=== PATIENT | female | born 1965 | race Caucasian/White ===

== ENCOUNTER 2024-09-01 13:22 | Emergency (ER) | payer SELFPAY ==
[2024-09-01] VITALS (30 sets, daily range): BP systolic 98–122; BP diastolic 51–69; PULSE 92–113; RESP 13–29; TEMP 36.6–36.8; O2SAT 92–100; BMI 27.9
[2024-09-01 14:24] LABS: Add Manual Diff / Slide Review NO; Basophils Absolute Auto 0 /uL (0-100); Basophils Percent Auto 1.1 % (0-2); Eosinophils Absolute Auto 100 /uL (0-450); Lymphocytes Absolute Auto 1100 /uL (1100-4500); Lymphocytes Percent Auto 26.7 % (25-40); Mean Corpuscular HGB Conc 30.7 % (30-36); Mean Corpuscular Hemoglobin 23.5 PG (26-34); Mean Corpuscular Volume 76.5 fL (80-100); Monocytes Absolute Auto 300 /uL (0-900); Monocytes Percent Auto 8.1 % (3-14); Neutrophils Absolute Auto 2600 /uL (1500-7000); Neutrophils Percent Auto 62.1 % (50-75); Platelet Count 152 X10^3/uL (150-400); Red Blood Cell Count 2.54 X10^6/uL (4.0-5.2); Red Cell Distribution Width 24.3 % (11.6-14.8); White Blood Cell Count 4.2 X10^3/uL (4.5-11.0)
[2024-09-01 14:27] LABS: Hematocrit 19.4 % (36-46)
[2024-09-01 14:30] LABS: Alanine Aminotransferase 14 IU/L (<35); Albumin 3.3 g/dL (3.5-5.0); Albumin Globulin Ratio 0.9 (1.0-2.8); Alkaline Phosphatase 128 U/L (38-126); Aspartate Aminotransferase 37 IU/L (14-36); Bilirubin Total 1.5 mg/dL (0.2-1.3); Blood Urea Nitrogen 13 mg/dL (7-17); Calcium 8.3 mg/dL (8.4-10.2); Carbon Dioxide 24 mmol/L (22-32); Chloride 101 mmol/L (98-107); Estimated Glomerular Filt Rate > 60 mL/min (>60); Globulin 3.5 g/dL (1.7-4.1); Glucose 89 mg/dL (70-99); HEMOLYSIS < 15 (0-50); Lipase 203 U/L (23-300); Potassium 3.4 mmol/L (3.4-5.1); Sodium 135 mmol/L (137-145); Total Protein 6.8 g/dL (6.3-8.2)
--- NOTE | 2024-09-01 14:33 | PC.NURSE ---
pt was asked to provide a stool sample and was agreeable. pt transfered onto bed side commode. unable to produce a sample at this time.
[2024-09-01 14:41] LABS: INR 1.4 (0.9-1.3); Prothrombin Time 15.8 SECONDS (9.4-12.5)
[2024-09-01 14:44] LABS: PTT Partial Thromboplastin Tim 38 SECONDS (25.1-36.5)
[2024-09-01 14:46] LABS: Lactate (Lactic Acid) 1.3 mmol/L (0.7-2.1); Magnesium 1.7 mg/dL (1.6-2.3)
[2024-09-01] MEDS: PANTOPRAZOLE 40 MG VIAL 80 MG IV (14:46)
--- NOTE | 2024-09-01 14:46 | ED_ITS ---
HPI - General Adult <Farzaneh Romero MD - Last Filed: 09/02/24 20:18> General Chief complaint: Abdominal Pain Stated complaint: Lower back pain / both side hurt x 14 days Time Seen by Provider: 09/01/24 14:26 Source: patient Mode of arrival: Ambulatory History of Present Illness HPI narrative: Pt is a 58 y/o F without known pmh presenting with low back and bilateral side pain for the last 2 weeks. Patient denies any acute injury, states pain is better when lying on her side. Has been intermittently taking tylenol or ibuprofen without significant relief. PAtient does endorse abdominal distension without significant abdominal pain which has also worsened over the last two weeks. Has been having liquid stools/diarrhea however denies any bloody or dark, tarry stools. No dysuria however urine has been decreased. Patient with history of alcohol use disorder, however has not had any alcohol since onset of these symptoms two weeks prior. She denies any fevers or chills, no lightheadedness but does have generalized fatigue. Related Data Previous Rx's Medication Instructions Recorded omeprazole 20 mg capsule,delayed 20 mg PO DAILY upper abdominal 09/01/24 release pain 30 days #30 caps Allergies Allergy/AdvReac Type Severity Reaction Status Date / Time erythromycin base Allergy Unknown super Verified 09/01/24 13:26 [From ERYTHROCIN] sick Review of Systems <Farzaneh Romero MD - Last Filed: 09/02/24 20:18> Review of Systems ROS Unobtainable: All systems reviewed & are unremarkable except as noted in HPI and below Constitutional Constitutional: Reports fatigue and Denies fever(s) Eyes Eyes: Denies diplopia ENT Ears, Nose, Mouth, and Throat: Denies dizziness and Denies epistaxis Cardiovascular Cardiovascular: Denies chest pain Gastrointestinal Gastrointestinal: Denies abdominal pain, Denies melena, Reports bloating and Reports change in bowel habits Genitourinary Genitourinary: Denies dysuria Neurologic Neurologic: Denies confusion and Denies dizziness Psychiatric Psychiatric: Denies confusion Endocrine Endocrine: Reports fatigue Patient History <Farzaneh Romero MD - Last Filed: 09/02/24 20:18> Social History Smoking Status: Current some day smoker Smoking Status: Current some day smoker tobacco type: cigarettes Exam <Farzaneh Romero MD - Last Filed: 09/02/24 20:18> Narrative Exam Narrative: Grossly distended abdomen, nontender to palpation Axbzz-dlhqsea-plhe-left lower extremity edema Tachycardia Initial Vital Signs Initial Vital Signs: Vital Signs Temperature 98.1 F 09/01/24 13:26 Pulse Rate 113 H 09/01/24 13:26 Respiratory Rate 18 09/01/24 13:26 Blood Pressure 107/55 L 09/01/24 13:26 Pulse Oximetry 100 09/01/24 13:26 Oxygen Delivery Method Room Air 09/01/24 13:26 Const General: No acute distress and ill appearing [facility] Head: normocephalic and atraumatic Eyes General: Yes appearance normal, both eyes and all related structures Resp Effort & Inspection: normal respiratory effort and no respiratory distress Cardio Rate: tachycardic Rhythm: regular rhythm GI Inspection: distended Palpation: soft Neuro General: no focal motor deficits Psych Mental Status: mental status grossly normal <Tony Rg MD - Last Filed: 09/02/24 03:31> Initial Vital Signs Initial Vital Signs: Vital Signs Temperature 98.1 F 09/01/24 13:26 Pulse Rate 113 H 09/01/24 13:26 Respiratory Rate 18 09/01/24 13:26 Blood Pressure 107/55 L 09/01/24 13:26 Pulse Oximetry 100 09/01/24 13:26 Oxygen Delivery Method Room Air 09/01/24 13:26 Procedures <Farzaneh Romreo MD - Last Filed: 09/02/24 20:18> Paracentesis Time of procedure: 19:00 Indication: Ascites Procedure: diagnostic paracentesis Local Anesthetic: lidocaine 1% and with epi Amount of anesthesia used (mL): 1 Preparation: sterile prep and drape Fluid: clear Post Procedure Exam: awake, alert Patient Tolerated Procedure: Well and No complications Course <Farzaneh Romero MD - Last Filed: 09/02/24 20:18> Orders Ordered: Discontinued Medications Lidocaine/Epinephrine (Lidocaine 1% W/Epi 10ml) 1 ml SUBCUT NOW ONE Stop: 09/01/24 17:51 Last Admin: 09/01/24 18:35 Dose: 1 ml Documented By: DEVON Ondansetron HCl (Ondansetron 4 Mg/2 Ml Inj) 4 mg IV NOW PRN PRN Reason: Nausea And Vomiting Ondansetron HCl (Ondansetron 4 Mg Odt) 4 mg PO NOW PRN PRN Reason: Nausea And Vomiting Pantoprazole Sodium (Pantoprazole 40 Mg Vial) 80 mg IV NOW ONE Stop: 09/01/24 14:29 Last Admin: 09/01/24 14:46 Dose: 80 mg Documented By: DVEON Vital Signs Vital signs: Vital Signs - 8 hr 09/01/24 19:30 09/01/24 19:30 09/01/24 20:00 Temperature Pulse Rate 101 H 97 H Respiratory Rate 20 19 Blood Pressure 108/58 L Pulse Oximetry 96 93 09/01/24 20:00 09/01/24 20:30 09/01/24 20:30 Temperature Pulse Rate 97 H Respiratory Rate 23 Blood Pressure 116/58 L 107/52 L Pulse Oximetry 94 09/01/24 21:00 09/01/24 21:00 09/01/24 21:11 Temperature Pulse Rate 96 H Respiratory Rate 29 H Blood Pressure 110/57 L 112/58 L Pulse Oximetry 94 09/01/24 21:11 09/01/24 21:18 09/01/24 21:30 Temperature 97.8 F Pulse Rate 95 H 95 H 95 H Respiratory Rate 22 20 29 H Blood Pressure 112/58 L Pulse Oximetry 93 92 09/01/24 21:30 09/01/24 22:00 09/01/24 22:00 Temperature Pulse Rate 95 H Respiratory Rate 26 H Blood Pressure 109/56 L 111/59 L Pulse Oximetry 95 09/01/24 22:30 09/01/24 22:30 09/01/24 23:00 Temperature Pulse Rate 100 H 99 H Respiratory Rate 17 27 H Blood Pressure 110/52 L Pulse Oximetry 93 95 09/01/24 23:00 09/01/24 23:30 09/01/24 23:30 Temperature Pulse Rate 92 H Respiratory Rate 20 Blood Pressure 115/69 117/58 L Pulse Oximetry 93 <Tony Rg MD - Last Filed: 09/02/24 03:31> Orders Ordered: Discontinued Medications Lidocaine/Epinephrine (Lidocaine 1% W/Epi 10ml) 1 ml SUBCUT NOW ONE Stop: 09/01/24 17:51 Last Admin: 09/01/24 18:35 Dose: 1 ml Documented By: DEVON Ondansetron HCl (Ondansetron 4 Mg/2 Ml Inj) 4 mg IV NOW PRN PRN Reason: Nausea And Vomiting Ondansetron HCl (Ondansetron 4 Mg Odt) 4 mg PO NOW PRN PRN Reason: Nausea And Vomiting Pantoprazole Sodium (Pantoprazole 40 Mg Vial) 80 mg IV NOW ONE Stop: 09/01/24 14:29 Last Admin: 09/01/24 14:46 Dose: 80 mg Documented By: DEVON Vital Signs Vital signs: Vital Signs - 8 hr 09/01/24 19:30 09/01/24 19:30 09/01/24 20:00 Temperature Pulse Rate 101 H 97 H Respiratory Rate 20 19 Blood Pressure 108/58 L Pulse Oximetry 96 93 09/01/24 20:00 09/01/24 20:30 09/01/24 20:30 Temperature Pulse Rate 97 H Respiratory Rate 23 Blood Pressure 116/58 L 107/52 L Pulse Oximetry 94 09/01/24 21:00 09/01/24 21:00 09/01/24 21:11 Temperature Pulse Rate 96 H Respiratory Rate 29 H Blood Pressure 110/57 L 112/58 L Pulse Oximetry 94 09/01/24 21:11 09/01/24 21:18 09/01/24 21:30 Temperature 97.8 F Pulse Rate 95 H 95 H 95 H Respiratory Rate 22 20 29 H Blood Pressure 112/58 L Pulse Oximetry 93 92 09/01/24 21:30 09/01/24 22:00 09/01/24 22:00 Temperature Pulse Rate 95 H Respiratory Rate 26 H Blood Pressure 109/56 L 111/59 L Pulse Oximetry 95 09/01/24 22:30 09/01/24 22:30 09/01/24 23:00 Temperature Pulse Rate 100 H 99 H Respiratory Rate 17 27 H Blood Pressure 110/52 L Pulse Oximetry 93 95 09/01/24 23:00 09/01/24 23:30 09/01/24 23:30 Temperature Pulse Rate 92 H Respiratory Rate 20 Blood Pressure 115/69 117/58 L Pulse Oximetry 93 Medical Decision Making <Farzaneh Romero MD - Last Filed: 09/02/24 20:18> Differential Diagnosis Differential Diagnosis: Cirrhosis, CHF, nephrolithiasis, vascular injury, thrombus, GI bleed, AAA Medical Records Medical records reviewed: Yes I reviewed the patient's medical records. Medical records narrative: Patient without significant medical care since 2019 Lab Data Lab results reviewed: Yes I reviewed the patient's lab results. Lab results narrative: Notable for CBC with H/H 6.0/19.4 CMP with mildly elevated LFTs, no NATHAN or other electrolyte abnormality 09/01/24 22:34 09/01/24 14:09 Labs: Lab Results 09/01/24 09/01/24 09/01/24 Range/Units 14:00 14:09 15:00 WBC 4.2 L (4.5-11.0) X10^3/uL RBC 2.54 L (4.0-5.2) X10^6/uL Hgb 6.0 L* (12.0-16.0) g/dL Hct 19.4 L* (36-46) % MCV 76.5 L (80-100) fL MCH 23.5 L (26-34) PG MCHC 30.7 (30-36) % RDW 24.3 H (11.6-14.8) % Plt Count 152 (150-400) X10^3/uL Neut % (Auto) 62.1 (50-75) % Lymph % (Auto) 26.7 (25-40) % [place] % (Auto) 8.1 (3-14) % Eos % (Auto) 2.0 (2-4) % Baso % (Auto) 1.1 (0-2) % Neut # (Auto) 2600 (8185-7552) /uL Lymph # (Auto) 1100 (6547-2550) /uL [place] # (Auto) 300 (0-900) /uL Eos # (Auto) 100 (0-450) /uL Baso # (Auto) 0 (0-100) /uL RBC Morphology See below Hypochromasia 1+ H Anisocytosis 2+ H Microcytosis 1+ H Macrocytosis 1+ H Ovalocytes 1+ H PT 15.8 H (9.4-12.5) SECONDS INR 1.4 H (0.9-1.3) APTT 38 H (25.1-36.5) SECONDS Sodium 135 L (137-145) mmol/L Potassium 3.4 (3.4-5.1) mmol/L Chloride 101 (98-107) mmol/L Carbon Dioxide 24 (22-32) mmol/L BUN 13 (7-17) mg/dL Creatinine 0.52 (0.52-1.04) mg/dL Estimated GFR > 60 (>60) mL/min BUN/Creatinine Ratio 25.0 H (6-22) Glucose 89 (70-99) mg/dL Lactate 1.3 (0.7-2.1) mmol/L Calcium 8.3 L (8.4-10.2) mg/dL Magnesium 1.7 (1.6-2.3) mg/dL Total Bilirubin 1.5 H (0.2-1.3) mg/dL AST 37 H (14-36) IU/L ALT 14 (<35) IU/L Alkaline Phosphatase 128 H (38-126) U/L Troponin I < 0.012 (0.01-0.034) ng/mL NT-Pro-B Natriuret Pep 221 H (<125) pg/mL Total Protein 6.8 (6.3-8.2) g/dL Albumin 3.3 L (3.5-5.0) g/dL Globulin 3.5 (1.7-4.1) g/dL Albumin/Globulin Ratio 0.9 L (1.0-2.8) Lipase 203 (23-300) U/L TSH 1.45 (0.47-4.68) uIU/mL Fluid Color Fluid Appearance Fluid RBC /uL Fld Tot Nucleated Cell /uL Fluid Neutrophils % % Fluid Lymphocytes % % Fluid Meso/Macro/[place] % % Body Fluid Clot Blood Type AB Positive Antibody Screen Negative Crossmatch See Detail 09/01/24 09/01/24 Range/Units 18:41 22:34 WBC (4.5-11.0) X10^3/uL RBC (4.0-5.2) X10^6/uL Hgb 7.8 L (12.0-16.0) g/dL Hct 23.9 L (36-46) % MCV (80-100) fL MCH (26-34) PG MCHC (30-36) % RDW (11.6-14.8) % Plt Count (150-400) X10^3/uL Neut % (Auto) (50-75) % Lymph % (Auto) (25-40) % [place] % (Auto) (3-14) % Eos % (Auto) (2-4) % Baso % (Auto) (0-2) % Neut # (Auto) (5873-3063) /uL Lymph # (Auto) (1365-9243) /uL [place] # (Auto) (0-900) /uL Eos # (Auto) (0-450) /uL Baso # (Auto) (0-100) /uL RBC Morphology Hypochromasia Anisocytosis Microcytosis Macrocytosis Ovalocytes PT (9.4-12.5) SECONDS INR (0.9-1.3) APTT (25.1-36.5) SECONDS Sodium (137-145) mmol/L Potassium (3.4-5.1) mmol/L Chloride (98-107) mmol/L Carbon Dioxide (22-32) mmol/L BUN (7-17) mg/dL Creatinine (0.52-1.04) mg/dL Estimated GFR (>60) mL/min BUN/Creatinine Ratio (6-22) Glucose (70-99) mg/dL Lactate (0.7-2.1) mmol/L Calcium (8.4-10.2) mg/dL Magnesium (1.6-2.3) mg/dL Total Bilirubin (0.2-1.3) mg/dL AST (14-36) IU/L ALT (<35) IU/L Alkaline Phosphatase (38-126) U/L Troponin I (0.01-0.034) ng/mL NT-Pro-B Natriuret Pep (<125) pg/mL Total Protein (6.3-8.2) g/dL Albumin (3.5-5.0) g/dL Globulin (1.7-4.1) g/dL Albumin/Globulin Ratio (1.0-2.8) Lipase (23-300) U/L TSH (0.47-4.68) uIU/mL Fluid Color Yellow Fluid Appearance Clear Fluid RBC 512 /uL Fld Tot Nucleated Cell 163 /uL Fluid Neutrophils % 10 % Fluid Lymphocytes % 13 % Fluid Meso/Macro/[place] % 77 % Body Fluid Clot No clots present Blood Type Antibody Screen Crossmatch Imaging Data CT scan - abdomen/pelvis: Attestation: I personally reviewed and interpreted this imaging study as follows: My Impression: Ct imaging demonstrating moderate abdominal ascites, splenomegaly on independent review. Without evidence of hydronephrosis, aortic aneurysm, sbo. Radiologist's Impression: [address] [address] [address] Scan Report Signed Patient: Grisel Shepherd MR#: [id number] : 1965 Acct:[id number] Age/Sex: 58 / F Date of Service: 09/01/24 Loc: ED Accession Number: [id number] Procedure: CT angio chest abdomen pelvis Ordering Provider: Farzaneh Romero MD PROCEDURE: CT ANGIO CHEST ABDOMEN PELVIS INDICATIONS: sepsis TECHNIQUE: Precontrast 5 mm thick sections acquired from the lung apices to the iliac crests. After the administration of intravenous contrast, 2.5 mm thick sections again acquired from the lung apices to the iliac crests. Maximum intensity projection (MIP) oblique sagittal and coronal reformats were then acquired. For radiation dose reduction, the following was used: automated exposure control. COMPARISON: None. FINDINGS: Image quality: Diagnostic. AORTA: No aortic aneurysm. No acute aortic syndrome. CHEST: Lower Neck: No enlarged lymph nodes. Thyroid: No thyroid nodules which require sonographic evaluation. Axillae: No enlarged lymph nodes. Chest Wall: Unremarkable. Lungs and Pleura: There is a small left-sided pleural effusion seen, with overlying atelectasis. Heart: Heart size is normal. No pericardial effusion. Thoracic Vessels: Pulmonary arteries demonstrate normal size. Mediastinum and Katheryn: No enlarged lymph nodes. Esophagus: No wall thickening. No hiatal hernia. ABDOMEN: Liver: No solid mass. A nonenhancing water density cyst can be seen involving the left anterior liver, measuring 8 cm. Gallbladder: No radiopaque gallstones or wall thickening. Biliary ducts: No biliary dilation. Pancreas: No ductal dilation. Spleen: The spleen is enlarged, measuring 15.4 cm craniocaudal. Adrenal Glands: No adrenal nodules. Kidneys and Ureters: No hydronephrosis. No solid mass. No complex renal cystic lesion which requires follow up. Stomach and Bowel: Normal colonic caliber, without significant wall thickening. Colonic diverticulosis is seen, without findings of active diverticulitis. No dilated loops of small bowel are seen. Peritoneum: No abnormal intraperitoneal fluid. No free air. Ventral Wall: No hernia. Fatty stranding can be seen involving the subcutaneous fat of the anterior abdominal wall. No focal abscess or soft tissue gas can be seen. Abdominal Nodes: No retroperitoneal or mesenteric adenopathy by size criteria. Vessels: Inferior vena cava is normal in size. PELVIS: Pelvic Organs: Unremarkable. Bladder: Unremarkable. Pelvic Nodes: No enlarged lymph nodes. Miscellaneous: No inguinal hernias are seen. Bones: There is a remote Schmorl's node seen involving the superior endplate of L5. Age-appropriate bony degenerative changes are seen. IMPRESSION: Normal appearing aorta. No significant arterial abnormality is seen. There is a small left-sided pleural effusion. Moderate ascites. Splenomegaly. Anterior abdominal wall fatty stranding is seen. Cellulitis is suspected. Additional findings: Nonenhancing 8 cm left liver cyst Diverticulosis, without active diverticulitis Schmorl's node at the superior endplate of L5 Dictated by: Jalen Prieto M.D. on 09/01/2024 at 14:38 Approved by: Jalen Prieto M.D. on 09/01/2024 at 14:42 MDM Narrative Medical decision making narrative: History and exam as above. pt is a 58 y/o f presenting with bilateral abdominal/flank pain and low back pain. 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 Patient is noninfectious appearing, denies acute worsening on the day of presentation. Will plan for evaluation including imaging of the chest abdomen pelvis, and diagnostic paracentesis to further evaluate ascites. Discussed likely need for transfer and specialist evaluation for further workup and management including EGD/Colonoscopy, pt expressed hesitance in regards to admission or transfer given her current lack of insurance. Is in agreement with workup here and will plan for further disposition discussion pending remainder of workup. Pt signed out to Dr Rg with full report and change of shift. 09/01/241899, Arcenio. Signout from Dr Romero. <Tony Rg MD - Last Filed: 09/02/24 03:31> Lab Data Labs: Lab Results 09/01/24 09/01/24 09/01/24 Range/Units 14:00 14:09 15:00 WBC 4.2 L (4.5-11.0) X10^3/uL RBC 2.54 L (4.0-5.2) X10^6/uL Hgb 6.0 L* (12.0-16.0) g/dL Hct 19.4 L* (36-46) % MCV 76.5 L (80-100) fL MCH 23.5 L (26-34) PG MCHC 30.7 (30-36) % RDW 24.3 H (11.6-14.8) % Plt Count 152 (150-400) X10^3/uL Neut % (Auto) 62.1 (50-75) % Lymph % (Auto) 26.7 (25-40) % [place] % (Auto) 8.1 (3-14) % Eos % (Auto) 2.0 (2-4) % Baso % (Auto) 1.1 (0-2) % Neut # (Auto) 2600 (7325-6558) /uL Lymph # (Auto) 1100 (2201-1061) /uL [place] # (Auto) 300 (0-900) /uL Eos # (Auto) 100 (0-450) /uL Baso # (Auto) 0 (0-100) /uL RBC Morphology See below Hypochromasia 1+ H Anisocytosis 2+ H Microcytosis 1+ H Macrocytosis 1+ H Ovalocytes 1+ H PT 15.8 H (9.4-12.5) SECONDS INR 1.4 H (0.9-1.3) APTT 38 H (25.1-36.5) SECONDS Sodium 135 L (137-145) mmol/L Potassium 3.4 (3.4-5.1) mmol/L Chloride 101 (98-107) mmol/L Carbon Dioxide 24 (22-32) mmol/L BUN 13 (7-17) mg/dL Creatinine 0.52 (0.52-1.04) mg/dL Estimated GFR > 60 (>60) mL/min BUN/Creatinine Ratio 25.0 H (6-22) Glucose 89 (70-99) mg/dL Lactate 1.3 (0.7-2.1) mmol/L Calcium 8.3 L (8.4-10.2) mg/dL Magnesium 1.7 (1.6-2.3) mg/dL Total Bilirubin 1.5 H (0.2-1.3) mg/dL AST 37 H (14-36) IU/L ALT 14 (<35) IU/L Alkaline Phosphatase 128 H (38-126) U/L Troponin I < 0.012 (0.01-0.034) ng/mL NT-Pro-B Natriuret Pep 221 H (<125) pg/mL Total Protein 6.8 (6.3-8.2) g/dL Albumin 3.3 L (3.5-5.0) g/dL Globulin 3.5 (1.7-4.1) g/dL Albumin/Globulin Ratio 0.9 L (1.0-2.8) Lipase 203 (23-300) U/L TSH 1.45 (0.47-4.68) uIU/mL Fluid Color Fluid Appearance Fluid RBC /uL Fld Tot Nucleated Cell /uL Fluid Neutrophils % % Fluid Lymphocytes % % Fluid Meso/Macro/[place] % % Body Fluid Clot Blood Type AB Positive Antibody Screen Negative Crossmatch See Detail 09/01/24 09/01/24 Range/Units 18:41 22:34 WBC (4.5-11.0) X10^3/uL RBC (4.0-5.2) X10^6/uL Hgb 7.8 L (12.0-16.0) g/dL Hct 23.9 L (36-46) % MCV (80-100) fL MCH (26-34) PG MCHC (30-36) % RDW (11.6-14.8) % Plt Count (150-400) X10^3/uL Neut % (Auto) (50-75) % Lymph % (Auto) (25-40) % [place] % (Auto) (3-14) % Eos % (Auto) (2-4) % Baso % (Auto) (0-2) % Neut # (Auto) (0333-7392) /uL Lymph # (Auto) (6591-6392) /uL [place] # (Auto) (0-900) /uL Eos # (Auto) (0-450) /uL Baso # (Auto) (0-100) /uL RBC Morphology Hypochromasia Anisocytosis Microcytosis Macrocytosis Ovalocytes PT (9.4-12.5) SECONDS INR (0.9-1.3) APTT (25.1-36.5) SECONDS Sodium (137-145) mmol/L Potassium (3.4-5.1) mmol/L Chloride (98-107) mmol/L Carbon Dioxide (22-32) mmol/L BUN (7-17) mg/dL Creatinine (0.52-1.04) mg/dL Estimated GFR (>60) mL/min BUN/Creatinine Ratio (6-22) Glucose (70-99) mg/dL Lactate (0.7-2.1) mmol/L Calcium (8.4-10.2) mg/dL Magnesium (1.6-2.3) mg/dL Total Bilirubin (0.2-1.3) mg/dL AST (14-36) IU/L ALT (<35) IU/L Alkaline Phosphatase (38-126) U/L Troponin I (0.01-0.034) ng/mL NT-Pro-B Natriuret Pep (<125) pg/mL Total Protein (6.3-8.2) g/dL Albumin (3.5-5.0) g/dL Globulin (1.7-4.1) g/dL Albumin/Globulin Ratio (1.0-2.8) Lipase (23-300) U/L TSH (0.47-4.68) uIU/mL Fluid Color Yellow Fluid Appearance Clear Fluid RBC 512 /uL Fld Tot Nucleated Cell 163 /uL Fluid Neutrophils % 10 % Fluid Lymphocytes % 13 % Fluid Meso/Macro/[place] % 77 % Body Fluid Clot No clots present Blood Type Antibody Screen Crossmatch [facility] Narrative Medical decision making narrative: History and exam as above. pt is a 58 y/o f presenting with bilateral abdominal/flank pain and low back pain. 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 Patient is noninfectious appearing, denies acute worsening on the day of presentation. Will plan for evaluation including imaging of the chest abdomen pelvis, and diagnostic paracentesis to further evaluate ascites. Discussed likely need for transfer and specialist evaluation for further workup and management including EGD/Colonoscopy, pt expressed hesitance in regards to admission or transfer given her current lack of insurance. Is in agreement with workup here and will plan for further disposition discussion pending remainder of workup. Pt signed out to Dr Rg with full report and change of shift. [id number]. Signout from Dr Romero. 58-year-old female with bilateral abdominal flank area and low back pain, history of alcohol abuse with last drink about 1 month ago, admits to an episode of throwing up blood 1-1/2 months ago but none more recent, no black or red stools recent. Afebrile, sirs screen negative. Ascites on exam. CT angiogram chest abdomen and pelvis showed normal aorta, did show ascites, did show splenomegaly, did not demonstrate cirrhosis but apparently showed 8 cm diameter liver cyst. Diagnostic paracentesis fluid sent to lab, results pending at this time. Assumed care. Paracentesis cell count showed 163 nucleated cells, 10% neutrophils, ANC equals 16. 77% monocytes, 30% lymphocytes. Not consistent with subacute bacterial peritonitis. Patient tolerated diagnostic tap well, wants to go home, felt better after 2 unit transfusion for initial hemoglobin 6.0, no active recent signs or symptoms of GI bleeding, post transfusion hemoglobin 7.8 improved. She would not want to stay for further evaluation and testing. She did not want to be transferred to Gastroenterology, stating she would follow up with Gastroenterology as an outpatient. She left the emergency department against medical advice. Family present at bedside did not contest her decision to leave against medical advice. Return precautions discussed. Given prescription for omeprazole if she will take this. Discharge Plan Departure Patient Disposition: Home Clinical Impression: Anemia, Back pain, History of alcohol abuse, Ascites, Left against medical advice Activity Restrictions/Additional Instructions: You had back and flank area discomfort of unclear cause. CT imaging chest abdomen and pelvis showed presence of ascites fluid in the abdomen. A sample was obtained for lab testing. No obvious infection at this time. Consider larger volume paracentesis removal of ascites fluid, which can be arranged via through Interventional Radiology, with referral from your primary care doctor. You had anemia of unclear cause, requiring transfusion of 2 units packed red blood cells blood. You were advised to be transferred to GI capable facility. You did not want to do this. You did not want to have any further evaluation here and you wanted to go home. You left the emergency department against medical advice. Prescriptions: New omeprazole 20 mg capsule,delayed release(DR/EC) 20 mg PO DAILY 30 Days Qty: 30 0RF Stand Alone Forms: Patient Portal/API/Survey
[2024-09-01 14:55] LABS: Anisocytosis 2+; Hypochromasia 1+; Macrocytosis 1+; Microcytosis 1+; Ovalocytes 1+
[2024-09-01 15:18] LABS: Thyroid Stimulating Hormone 1.45 uIU/mL (0.47-4.68)
--- NOTE | 2024-09-01 15:25 | EKG_ITS ---
[address] [address] Test Date: 2024-09-01 Pat Name: Grisel Shepherd Department: [facility] Room: Gender: Female Recreation Clerk: CRISTÓBAL : 1965 Requested By: Order Number: [id number] Reading MD: Bienvenido Sweeney Measurements Intervals Ailey Rate: 101 P: 60 AL: 136 QRS: 80 QRSD: 78 T: 42 QT: 378 QTc: 490 Interpretive Statements Sinus tachycardia Electronically Signed On 09-01-2024 18:37:01 PDT by Bienvenido Sweeney
[2024-09-01 15:35] LABS: NT-proBNP (BNP-Adult 18+) 221 pg/mL (<125)
[2024-09-01 15:38] LABS: Troponin I < 0.012 ng/mL (0.01-0.034)
[2024-09-01] MEDS: LIDOCAINE 1% W/EPI 10ML SUBCUT (18:35)
[2024-09-01 19:11] LABS: Body Fluid Tot Nucleated Cells 163 /uL
[2024-09-01 19:15] LABS: Body Fluid Red Blood Cells 512 /uL
[2024-09-01 19:33] LABS: Body Fluid Appearance CLEAR; Body Fluid Clotted? NO CLOTS PRESENT; Body Fluid Color YELLOW
[2024-09-01 19:50] LABS: Lymphocytes Body Fluid 13 %; MESO/MACRO/MONO Body Fluid 77 %; Neutrophils Body Fluid 10 %
[2024-09-01 22:42] LABS: Hematocrit 23.9 % (36-46); Hemoglobin 7.8 g/dL (12.0-16.0)
== END 2024-09-02 00:10 | disposition home or self-care (01) ==
PROVIDERS: Student in an Organized Health Care Education/Training Program; Emergency Provider Emergency Medicine; Family Provider Family Medicine
DX: D64.9 Anemia, unspecified (principal); R18.8 Other ascites; M54.50 Low back pain, unspecified; F10.11 Alcohol abuse, in remission
CPT/HCPCS: 36415; 36430; 49082; 71275; 74174; 80053; 83605; 83690; 83735; 83880; 84443; 84484; 85014; 85018; 85025; 85610; 85730; 86850; 86900; 86901; 87040; 87070; 87075; 87205; 89051; 93005; 96374; 96375; 99285; P9016; J2470; Q9967